=== PATIENT | male | born 1930 | race Caucasian/White ===

== ENCOUNTER 2017-02-06 08:23 | Day surgery (SDC) | payer OTHER, BC ==
[2017-01-30 11:27] VITALS: BMI 29.9
[2017-02-06] MEDS ORDERED: MIDAZOLAM HCL 2 MG/2 ML SINGLE DOSE VIAL ONE (10:48)
[2017-02-06 11:14] LABS: ACTIVATED PTT 30.3 SECONDS (24.0-38.9)
[2017-02-06 11:18] LABS: INR 1.2 (0.82-1.09); PROTHROMBIN TIME (PATIENT) 13.4 SEC (10.2-13.0)
[2017-02-06] MEDS ORDERED: KETOROLAC TROMETHAMINE 30 MG/1 ML VIAL ONE (11:45)
[2017-02-06] MEDS ORDERED: ONDANSETRON 4 MG/2 ML VIAL ONE (11:45)
[2017-02-06] MEDS ORDERED: ceFAZolin SODIUM 1 GM VIAL ONE (11:51)
[2017-02-06] MEDS ORDERED: BUPIVACAINE HCL/PF 0.25% (2.5MG/ML) 10 ML VIAL IJ ONE (12:06)
[2017-02-06] MEDS ORDERED: LACTATED RINGERS SOLUTION 1,000 ML IV SCH (12:30)
[2017-02-06] MEDS ORDERED: ONDANSETRON 4 MG/2 ML VIAL IVPUSH PRN (12:51)
[2017-02-06] MEDS ORDERED: oxyCODONE HCL 5 MG TABLET PO PRN (12:51)
[2017-02-06 13:56] VITALS: TEMP 97.6
[2017-02-06 14:38] VITALS: BP 126/56; PULSE 78
--- NOTE | 2017-02-08 21:06 | OP ---
DATE OF OPERATION: 02/06/2017 Done at [facility]. SURGEON: Carol Ann Meléndez MD TOWNSHIP SUPERVISOR: IVANNA Moore PREOPERATIVE DIAGNOSES: 1. Right knee medial and lateral meniscal tear. 2. Right knee cartilage injury. 3. Right knee synovitis. POSTOPERATIVE DIAGNOSES: 1. Right knee medial lateral meniscal tear. 2. Right knee cartilage injury. 3. Right knee synovitis. PROCEDURE: 1. Right knee arthroscopy, partial meniscectomy, medial [place] [address]. 2. Right knee arthroscopy with chondroplasty and abrasion[place] [address]. 3. Right knee arthroscopy with synovectomy, [place] [address]. FINDINGS: 1. Medial meniscus body and posterior horn tear. 2. Lateral meniscus posterior horn tear. 3. Synovitis, patellofemoral, medial, lateral, and notch area. 4. Central grade 2 to 3 cartilage injury, medial femoral condyle, 6 cm x 4 cm. 5. ACL and PCL intact. 6. Minor, diffuse grade 1-2 cartilage injury, lateral joint line. 7. Central grade 1 to 2 cartilage injury, patella, with grade 4 changes, medial facet of patellofemoral trochlear and the patellofemoral joint. PROCEDURE: Informed consent was obtained. The patient was taken to the operating room where the right lower extremity was prepped and draped in a sterile fashion. A tourniquet was placed on the right upper thigh but not inflated. Using standard arthroscopic technique, a lateral incision and portal were made which allowed for introduction of the camera into the suprapatellar bursa. This was then taken to the medial joint line where under direct visualization, a medial incision and portal were made. Excessive synovium noted in the medial, lateral, patellofemoral and notch area was removed by the up-biting shaver and Bovie cautery. This was found to bring inflammatory tissue into the joint surface, a source of joint pain and dysfunction. Probing of the medial and lateral meniscus found tears described in the findings. These were removed with an up-biting shaver and taken back to a stable rim. Grade 2-3 degenerative changes were treated with chondroplasty, removing all flaking surfaces with low setting Bovie used along the periphery. Grade 4 changes were treated with abrasion-plasty. All areas of the knee were once again re-examined. The knee was then drained. A single suture was placed on all portals. Sterile dressing was placed. The patient was transferred to the recovery room. CAROL ANN MELÉNDEZ M.D. [id number]
== END 2017-02-06 14:40 | disposition home or self-care (01) ==
LOC: FASU 08:23
PROVIDERS: ATTEND Orthopaedic Surgery
PROC: 0SBC4ZZ Excision of Right Knee Joint, Percutaneous Endoscopic Approach (ICD-10-PCS; 2017-02-06)
PROC: 0SBC4ZZ Excision of Right Knee Joint, Percutaneous Endoscopic Approach (ICD-10-PCS; 2017-02-06)
PROC: 0SBC4ZZ Excision of Right Knee Joint, Percutaneous Endoscopic Approach (ICD-10-PCS; principal; 2017-02-06 11:54)
DX: S83.241A Other tear of medial meniscus, current injury, right knee, initial encounter (principal); S83.281A Other tear of lateral meniscus, current injury, right knee, initial encounter; S83.8X1A Sprain of other specified parts of right knee, initial encounter; M63.86 Disorders of muscle in diseases classified elsewhere, lower leg; X58.XXXA Exposure to other specified factors, initial encounter; Y93.9 Activity, unspecified; Y92.9 Unspecified place or not applicable
CPT/HCPCS: 36415; 85610; 85730; 94760

== ENCOUNTER 2018-11-11 05:51 | Inpatient (IN) | payer OTHER, BC ==
[~2018-11-11 05:51] MED LIST: CEFAZOLIN 2 GM/D5W 2 GM/50 ML ML IVPB ONE; CELECOXIB 200 MG CAPSULE PO ONE; GABAPENTIN 300 MG CAPSULE (FP) PO ONE; PANTOPRAZOLE 40 MG TABLET (FP) PO ONE; ROPIVICAINE 0.2%/MORPH PF/KETOROLAC - 51ML DISP.SYRINGE IA ONE; TRANEXAMIC ACID 1000 MG/10 ML VIAL IVPUSH ONE; oxyCODONE HCL 10 MG SUSTAINED ACTING TABLET PO ONE
[2018-11-11] MEDS ORDERED: ceFAZolin SODIUM 1 GM VIAL ONE ×2 (07:06→08:50)
[2018-11-11] MEDS ORDERED: VANCOMYCIN 1,000 MG VIAL (RESTRICTED TO ID ONLY) ONE (07:06)
[2018-11-11] MEDS ORDERED: TRANEXAMIC ACID 1000 MG/10 ML VIAL ONE ×2 (07:06→08:50)
[2018-11-11 07:15] VITALS: BMI 28.1
[2018-11-11] MEDS ORDERED: BUPIVACAINE HCL/PF (5 MG/ML) 30 ML VIAL IJ ONE (07:33)
[2018-11-11] MEDS ORDERED: MIDAZOLAM HCL 2 MG/2 ML SINGLE DOSE VIAL ONE ×3 (07:33→11:38)
[2018-11-11] MEDS ORDERED: DEXAMETHASONE SOD PHOSPHATE/PF 10 MG/ML SDV ONE (07:33)
--- NOTE | 2018-11-11 07:34 | HP ---
Admitting History and Physical - Admission Chief Complaint: right hip osteoarthritis x years History of Present Illness: 88 year old male presents today in regard to his right hip. Longstanding history of right hip osteoarthritis. Patient complains of pain, limited ROM, difficulty ambulating and difficultly completing activities of daily living. Patient has failed conservative treatment measures including PO medications, activity modifications, injections and an exercise program. At this point, patient would like to proceed with surgical intervention, right hip arthroplasty - MAKOplasty. History Source: Patient - Past Medical History Cardiovascular: Yes: HTN Additional Past Medical History: Glaucoma - Past Surgical History Additional Past Surgical History: See written history & physical. - Advance Directives Advance Directives: Yes: Health Care Proxy - Smoking History Smoking history: Former smoker Have you smoked in the past 12 months: No If you are a former smoker, when did you quit?: 1976 - Alcohol/Substance Use Hx Alcohol Use: Yes (2 DRINKS PER DAY) Home Medications - Allergies Allergies/Adverse Reactions: Allergies Allergy/AdvReac Type Severity Reaction Status Date / Time No Known Allergies Allergy Verified 01/30/17 10:57 - Home Medications Home Medications: Ambulatory Orders Bimatoprost [Lumigan] 1 drop OU HS 01/30/17 Chromium [Chromium Picolinate (Nf)] 200 mcg PO DAILY 01/30/17 Cinnamon Bark [Cinnamon] 500 mg PO ACDIN 01/30/17 Lutein 20 mg PO DAILY 01/30/17 Propylene Glycol/Peg 400/Pf [Systane 0.3-0.4% Eye Drops] 1 each OU QID 01/30/17 Warfarin Na [Coumadin -] 7.5 mg PO ASDIR 01/30/17 Warfarin Na [Coumadin -] 10 mg PO ASDIR 01/30/17 Meloxicam [Mobic] 15 mg PO DAILY 11/01/18 Metoprolol Succinate 25 mg PO DAILY 11/01/18 Review of Systems - Review of Systems Musculoskeletal: reports: Decreased ROM (right hip) Physical Examination Vital Signs: Vital Signs Temperature 98.1 F 11/11/18 07:13 Pulse Rate 76 11/11/18 07:13 Respiratory Rate 18 11/11/18 07:13 Blood Pressure 140/80 11/11/18 07:13 O2 Sat by Pulse Oximetry (%) Constitutional: Yes: Well Nourished, No Distress Eyes: Yes: Conjunctiva Clear HENT: Yes: Atraumatic Neck: Yes: Supple Cardiovascular: Yes: Regular Rate and Rhythm Respiratory: Yes: Regular Gastrointestinal: Yes: Soft ...Rectal Exam: Yes: Deferred Musculoskeletal: Yes: Joint Stiffness (right hip) Assessment/Plan 88 year old male presents today in regard to his right hip. Longstanding history of right hip osteoarthritis. Patient complains of pain, limited ROM, difficulty ambulating and difficultly completing activities of daily living. Patient has failed conservative treatment measures including PO medications, activity modifications, injections and an exercise program. At this point, patient would like to proceed with surgical intervention, right hip arthroplasty - MAKOplasty. Pros, cons, risks, benefits and alternatives of a right total hip arthroplasty, MAKOplasty - were discussed with the patient at length. Patient confirms his understanding and consents to proceed with a right total hip arthroplasty, MAKOplasty.
[2018-11-11 07:48] LABS: INR 1.09 (0.83-1.09); PROTHROMBIN TIME (PATIENT) 12.9 SEC (9.7-13.0)
[2018-11-11] MEDS ORDERED: CELECOXIB 200 MG CAPSULE ONE (07:52)
[2018-11-11] MEDS ORDERED: PANTOPRAZOLE 40 MG TABLET (FP) ONE (07:52)
[2018-11-11] MEDS ORDERED: ePHEDrine SULFATE 50 MG/1 ML AMPULE ONE (08:26)
[2018-11-11] MEDS ORDERED: SUCCINYLCHOLINE CHLORIDE 200 MG/10 ML VIAL ONE (08:26)
[2018-11-11] MEDS ORDERED: DEXAMETHASONE SOD PHOSPHATE 4 MG/1 ML VIAL ONE (08:50)
[2018-11-11] MEDS ORDERED: ONDANSETRON 4 MG/2 ML VIAL ONE (08:50)
[2018-11-11] MEDS ORDERED: ROPIVICAINE 0.2%/MORPH PF/KETOROLAC - 51ML DISP.SYRINGE IA ONE ×2 (09:56→10:52)
[2018-11-11] MEDS ORDERED: diazePAM 5 MG TABLET ONE (10:22)
[2018-11-11] MEDS ORDERED: VANCOMYCIN 1,000 MG VIAL (RESTRICTED TO ID ONLY) IVPB ONE (10:51)
[2018-11-11] MEDS ORDERED: TRANEXAMIC ACID 1000 MG/10 ML VIAL IVPUSH ONE (10:51)
--- NOTE | 2018-11-11 11:17 | OP ---
Operative Note - Note: Operative Date: 11/11/18 Pre-Operative Diagnosis: Right hip OA Operation: Right JOSE MIGUEL Post-Operative Diagnosis: Same as Pre-op Surgeon: Sameer Prieto Concrete Buildings Assembler: Nicol Tabares Anesthesia: Spinal Estimated Blood Loss (mls): 200
[2018-11-11] MEDS ORDERED: ACETAMINOPHEN 1000 MG/100 ML VIAL (NON FORMULARY) IVPB ONE ×2 (11:38→12:05)
[2018-11-11] MEDS ORDERED: MAG HYDROX/AL HYDROX/SIMETH 30 ML UNIT-DOSE CUP PO PRN (11:41)
[2018-11-11] MEDS ORDERED: MAGNESIUM HYDROX 2400MG/30ML ORAL SUSPENSION 30 ML CUP PO PRN (11:41)
[2018-11-11] MEDS ORDERED: oxyCODONE HCL 5 MG TABLET PO PRN ×2 (11:41)
[2018-11-11] MEDS ORDERED: ONDANSETRON 4 MG/2 ML VIAL IVPUSH PRN ×2 (11:41)
[2018-11-11] MEDS ORDERED: PROMETHAZINE HCL 25 MG/1 ML VIAL IVPUSH PRN (11:41)
[2018-11-11] MEDS ORDERED: LACTATED RINGERS SOLUTION 1,000 ML IV SCH (11:45)
[2018-11-11] MEDS ORDERED: KETOROLAC TROMETHAMINE 30 MG/1 ML VIAL IVPUSH ONE (11:59)
[2018-11-11] MEDS ORDERED: traMADol HCL 50 MG TABLET PO ONE (12:30)
[2018-11-11] MEDS: traMADol HCL 50 MG TABLET PO SCH (18:32)
[2018-11-11] MEDS: ACETAMINOPHEN 325 MG TABLET (FP) PO SCH (18:32)
[2018-11-11] MEDS: CEFAZOLIN 2 GM/D5W 2 GM/50 ML ML IVPB SCH (18:33)
[2018-11-11] MEDS ORDERED: DEXAMETHASONE SOD PHOSPHATE 10 MG/1 ML VIAL IVPB ONE (20:00)
[2018-11-11] MEDS: ASCORBIC ACID 500 MG TABLET (FP) PO SCH (21:08)
[2018-11-11] MEDS: SENNOSIDES/DOCUSATE COMBO (SENNA PLUS) TABLET (UD) PO SCH (21:09)
[2018-11-11] MEDS: GABAPENTIN 300 MG CAPSULE (FP) PO SCH (21:09)
[2018-11-11] MEDS: WARFARIN NA 2.5 MG TABLET (FP) PO SCH (21:09)
[2018-11-11] MEDS: CELECOXIB 200 MG CAPSULE PO SCH (21:09)
[2018-11-11] MEDS ORDERED: LATANOPROST 0.005% OPHTH SOLN 2.5ML BOTTLE OU SCH (22:00)
[2018-11-11] MEDS: ARTIFICIAL TEARS (POLYVINYL ALCOHOL) OPTH DROPS OU SCH (22:13)
[2018-11-11] MEDS: KETOROLAC TROMETHAMINE 30 MG/1 ML VIAL IVPUSH SCH (23:28)
[2018-11-12] MEDS: CEFAZOLIN 2 GM/D5W 2 GM/50 ML ML IVPB SCH (02:00)
[2018-11-12] MEDS: ACETAMINOPHEN 325 MG TABLET (FP) PO SCH ×4 (05:58→18:13)
[2018-11-12] MEDS: traMADol HCL 50 MG TABLET PO SCH ×4 (05:58→17:40)
[2018-11-12] MEDS: KETOROLAC TROMETHAMINE 30 MG/1 ML VIAL IVPUSH SCH (06:11)
[2018-11-12] MEDS ORDERED: PT OWN MED DRAWER 7, Y5N ONE ×6 (06:47→18:17)
[2018-11-12 07:24] LABS: HEMATOCRIT 35.7 % (35.4-49); HEMOGLOBIN 12.2 GM/dl (11.7-16.9); MCH 32.9 pg (25.7-33.7); MCHC 34.2 g/dl (32.0-35.9); MEAN CELL VOLUME 96.3 fl (80-96); MEAN PLT VOLUME 8.9 fl (7.5-11.1); PLATELET COUNT 200 K/MM3 (134-434); RBC 3.71 M/mm3 (4.00-5.60); RDW 12.5 % (11.9-15.9)
[2018-11-12 07:35] LABS: ANION GAP 5 MMOL/L (8-16); BLOOD UREA NITROGEN 26 mg/dl (7-18); CHLORIDE 108 mmol/L (98-107); CO2 23 mmol/L (21-32); CREATININE 1.2 mg/dl (0.55-1.3); GLUCOSE,RANDOM 152 mg/dl (74-106); POTASSIUM 3.9 mmol/L (3.5-5.1); SODIUM 136 mmol/L (136-145)
[2018-11-12 07:36] LABS: INR 1.25 (0.82-1.09); PROTHROMBIN TIME (PATIENT) 13.9 SEC (10.2-13.0)
[2018-11-12] MEDS ORDERED: PATIENT'S OWN MEDICATION (NON-FORMULARY) (Lutein [Lutein] 20 MG) PO SCH (10:00)
[2018-11-12] MEDS: ARTIFICIAL TEARS (POLYVINYL ALCOHOL) OPTH DROPS OU SCH ×4 (10:09→21:21)
[2018-11-12] MEDS: CELECOXIB 200 MG CAPSULE PO SCH ×2 (10:09→21:21)
[2018-11-12] MEDS: SENNOSIDES/DOCUSATE COMBO (SENNA PLUS) TABLET (UD) PO SCH ×2 (10:10→21:20)
[2018-11-12] MEDS: GABAPENTIN 300 MG CAPSULE (FP) PO SCH ×2 (10:10→21:20)
[2018-11-12] MEDS: MULTIVITAMINS (DAILY MVI) TABLET (FP) PO SCH (10:10)
[2018-11-12] MEDS: metoPROLOL SUCCINATE 25 MG TAB.SR.24H (FP) PO SCH (10:10)
[2018-11-12] MEDS: PANTOPRAZOLE 40 MG TABLET (FP) PO SCH (10:10)
[2018-11-12] MEDS: ASCORBIC ACID 500 MG TABLET (FP) PO SCH ×2 (10:10→21:20)
--- NOTE | 2018-11-12 13:54 | PN ---
Progress Note (short form) - Note Progress Note: 88 yo male POD #1 s/p R JOSE MIGEUL under spinal anesthesia with PNB Patient sitting in chair in PT. Comfortable. No complaints. Tolerating PO. Reports active participation in PT. Daughter in chair next to patient says he's doing really well. A/P: VSS, afebrile Continue current care. Encouraged IS while in room. Continue to participate in PT. No anesthetic complications.
--- NOTE | 2018-11-12 19:29 | PN ---
Progress Note (short form) - Note Progress Note: Pt seen and examined. Doing well. AVSS Selected Entries 11/12/18 11/12/18 14:11 18:00 Temperature 98.4 F 97.8 F Pulse Rate 72 79 Respiratory 18 19 Rate Blood Pressure 127/57 L 119/50 L O2 Sat by Pulse 100 97 Oximetry (%) Oxygen Delivery Room Air Method Laboratory Tests 11/12/18 11/12/18 11/12/18 07:10 07:10 07:10 WBC 14.0 H Hgb 12.2 Hct 35.7 Plt Count 200 PT with INR 13.9 H INR 1.25 H Sodium 136 Potassium 3.9 Chloride 108 H Carbon Dioxide 23 Anion Gap 5 L BUN 26 H Creatinine 1.2 Creat Clearance w eGFR 57.41 Random Glucose 152 H Calcium 8.0 L Gen: NAD RLE: c/d/i, NVID A/P POD#1 s/p R JOSE MIGUEL PT/OOB - WBAT RLE D/C home in AM
--- NOTE | 2018-11-12 19:34 | DS ---
Physical Examination Vital Signs: Vital Signs Temperature 97.8 F 11/12/18 18:00 Pulse Rate 79 11/12/18 18:00 Respiratory Rate 19 11/12/18 18:00 Blood Pressure 119/50 L 11/12/18 18:00 O2 Sat by Pulse Oximetry (%) 97 11/12/18 18:00 Labs: CBC, BMP 11/12/18 07:10 11/12/18 07:10 Discharge Summary Reason For Visit: RIGHT HIP OSTEOARTHRITIS Current Active Problems Osteoarthritis of right hip (Acute) Procedures: Principal: right IVÁN JOSE MIGUEL Hospital Course: Admitted for elective surgery. Procedure performed without complications. Pt received postoperative antibiotic prophylaxis and DVT ppx. Ambulated with physical therapy. Stable for discharge home with outpatient followup. Condition: Stable - Instructions Diet, Activity, Other Instructions: Dr Prieto - Hip Replacement Instructions Keep the Aquacel dressing on until removed by Dr. Prieto in 10-14 days - it is antibacterial and waterproof and you can shower with it on. Call the office for a follow-up appointment with Dr. Prieto in 10-14 days. [phone] Resume your preop Warfarin dosing schedule to prevent blood clots in your legs. Take one Pantoprazole 40mg daily for 6 weeks to protect against heartburn and ulcers. Take Cephalexin (antibiotic) 3x/day for 10 days to help prevent skin infection. Take a multivitamin, stool softener and extra Vitamin C supplement daily. For pain: *Mild pain (1-3/10): Take 1 Tramadol tablet every 4 hours as needed. Moderate/Severe pain (4+/10): Take 1 Tramadol tablet and 1 Hydrocodone tablet every 4 hours as needed. Activity: You can put as much weight on the operative leg as you want. For the first 6 weeks, all you need to do is walk around the house, go up/down stairs, and sit down/get up. After 6 weeks when everything is healed (and bone has grown into the implant) you will be sent for more intensive outpatient physical therapy. Always use a walker or cane for balance and to prevent falls. Expect to see swelling / bruising from the operative site all the way down to your toes. Wear the Compression stocking on the operative side during the day to minimize how much swelling there is in your foot/ankle. Don't wear the stocking at night. You don't have to wear the stocking on the other side. Disposition: VNS/HOME HEALTH CARE - Home Medications Comprehensive Discharge Medication List: Ambulatory Orders Bimatoprost [Lumigan] 1 drop OU HS 01/30/17 Chromium [Chromium Picolinate (Nf)] 200 mcg PO DAILY 01/30/17 Cinnamon Bark [Cinnamon] 500 mg PO ACDIN 01/30/17 Lutein 20 mg PO DAILY 01/30/17 Propylene Glycol/Peg 400/Pf [Systane 0.3-0.4% Eye Drops] 1 each OU QID 01/30/17 Warfarin Na [Coumadin -] 7.5 mg PO ASDIR 01/30/17 Warfarin Na [Coumadin -] 10 mg PO ASDIR 01/30/17 Metoprolol Succinate 25 mg PO DAILY 11/01/18 Ascorbic Acid [Vitamin C -] 500 mg PO BID tablet 11/12/18 Cephalexin Monohydrate [Keflex -] 500 mg PO TID #30 capsule 11/12/18 Hydrocodone/Acetaminophen [Hydrocodone-Acetamin 5-325 mg] 1 each PO Q4H PRN #42 tablet MDD 6 11/12/18 Multivitamins [Multivit ([facility] Formulary)] 1 tab PO DAILY tab 11/12/18 Pantoprazole Sodium [Protonix -] 40 mg PO DAILY #40 tablet.ec 11/12/18 Sennosides/Docusate Sodium [Pericolace -] 2 tablet PO BID tablet 11/12/18 traMADol HCL [Ultram -] 50 mg PO Q4H PRN #42 tablet MDD 6 11/12/18
[2018-11-12] MEDS: WARFARIN NA 2.5 MG TABLET (FP) PO SCH (21:20)
[2018-11-13] MEDS: traMADol HCL 50 MG TABLET PO SCH ×2 (00:55→06:09)
[2018-11-13] MEDS: ACETAMINOPHEN 325 MG TABLET (FP) PO SCH ×2 (00:56→06:10)
[2018-11-13 02:50] VITALS: TEMP 98
[2018-11-13 05:39] VITALS: BP 128/59; PULSE 75
[2018-11-13 08:45] LABS: WHITE BLOOD COUNT 8.4 K/mm3 (4.0-10.8)
[2018-11-13 08:46] LABS: HEMATOCRIT 34.7 % (35.4-49); HEMOGLOBIN 11.4 GM/dl (11.7-16.9); MCH 31.7 pg (25.7-33.7); MEAN CELL VOLUME 96.2 fl (80-96); MEAN PLT VOLUME 9.2 fl (7.5-11.1); PLATELET COUNT 179 K/MM3 (134-434); RBC 3.61 M/mm3 (4.00-5.60); RDW 13.1 % (11.9-15.9)
[2018-11-13 08:57] LABS: INR 1.37 (0.82-1.09); PROTHROMBIN TIME (PATIENT) 15.2 SEC (10.2-13.0)
[2018-11-13 09:01] LABS: ANION GAP 6 MMOL/L (8-16); BLOOD UREA NITROGEN 26 mg/dl (7-18); CALCIUM 7.9 mg/dl (8.5-10); CHLORIDE 107 mmol/L (98-107); CO2 26 mmol/L (21-32); GLUCOSE,RANDOM 89 mg/dl (74-106); POTASSIUM 3.9 mmol/L (3.5-5.1); SODIUM 139 mmol/L (136-145)
[2018-11-13] MEDS: GABAPENTIN 300 MG CAPSULE (FP) PO SCH (09:14)
[2018-11-13] MEDS: SENNOSIDES/DOCUSATE COMBO (SENNA PLUS) TABLET (UD) PO SCH (09:14)
[2018-11-13] MEDS: ASCORBIC ACID 500 MG TABLET (FP) PO SCH (09:14)
[2018-11-13] MEDS: MULTIVITAMINS (DAILY MVI) TABLET (FP) PO SCH (09:14)
[2018-11-13] MEDS: PANTOPRAZOLE 40 MG TABLET (FP) PO SCH (09:14)
[2018-11-13] MEDS: CELECOXIB 200 MG CAPSULE PO SCH (09:14)
[2018-11-13] MEDS: metoPROLOL SUCCINATE 25 MG TAB.SR.24H (FP) PO SCH (09:14)
[2018-11-13] MEDS: ARTIFICIAL TEARS (POLYVINYL ALCOHOL) OPTH DROPS OU SCH (09:16)
[2018-11-13] MEDS ORDERED: PT OWN MED DRAWER 7, Y5N ONE (09:18)
--- NOTE | 2018-11-17 14:48 | PATH ---
Surgical Pathology Report Patient Name: BRITNEY AIKEN Med. Rec. #: [id number] /Age/Gender: 1930 (Age: 88) / M Account: [id number] Location: [facility] Taken: 11/11/2018 Received: 11/11/2018 Reported: 11/17/2018 Physicians: Sameer Prieto M.D. Specimen(s) Received RIGHT FEMORAL HEAD Clinical History Right hip osteoarthritis Final Diagnosis FEMORAL HEAD, RIGHT, TOTAL HIP REPLACEMENT: DEGENERATIVE JOINT DISEASE. Electronically Signed Suzie Silva M.D. Gross Description Received in formalin, labeled "right femoral head," is a 6.0 x 6.0 x 4.5 cm. femoral head with a 1.4 cm in length portion of femoral neck attached. The margin of resection is smooth. There is a 6.5 cm greatest dimension area of eburnation present. The remaining articular surface is jordan-yellow and diffusely nodular and granular. The underlying trabecular bone is yellow and hard. A contracts representative section is submitted in one cassette, following decalcification. 11/13/2018 [facility]/13/2018
--- NOTE | 2018-11-25 11:12 | SPEC ---
DATE OF OPERATION: 11/11/2018 PREOPERATIVE DIAGNOSIS: Right hip osteoarthritis. POSTOPERATIVE DIAGNOSIS: Right hip osteoarthritis. PROCEDURE: Right total hip replacement with MAKOplasty robotic navigation. SURGEON: Diane Tan MD FOOD AND DRUG INSPECTOR: IVANNA Magaña. ANESTHESIA: Spinal plus sedation. ESTIMATED BLOOD LOSS: 200 mL. COMPLICATIONS: None. DISPOSITION: The patient was transferred to the PACU in stable condition. IMPLANTS USED: [place] Accolade 2 size 9 femoral component, David Tritanium 62-mm acetabular component with 25- and 20-mm acetabular screws, MDM bipolar head ball with inner +8 mm offset head. INDICATIONS: This is an 88-year-old male who presented to the office complaining of severe right hip pain. He was seen and examined by Dr. Tan and diagnosed with severe right hip osteoarthritis. The patient was initially treated non-operatively with conservative management, but continued to have severe pain and ambulatory dysfunction. He was therefore indicated for a right total hip replacement. The risks, benefits, and alternatives to the procedure were explained to the patient and his family, and they elected to proceed with the procedure. DESCRIPTION OF PROCEDURE: On the day of surgery, the patient was taken to the operating room and placed on the OR table. Spinal anesthesia was administered by the anesthesiologist. The patient was then positioned in the lateral decubitus position on the table and all bony prominences were padded. An axillary roll was placed. The operative hip was then prepped and draped in the usual sterile fashion and intravenous antibiotics were given for infection prophylaxis. A surgical time-out was then performed with the team, and the patients identity, procedure, side, availability of implants, and the administration of antibiotics were confirmed. An approximately 15-cm longitudinal incision was made through the skin centered on the greater trochanter of the hip. This dissection was carried down through the subcutaneous tissues to the deep fascia. This fascia was then incised and a Cobra was placed around the inferior femoral neck. Electrocautery was used to reflect the anterior 40% of the gluteus medius and minimus starting at the musculotendinous junction and leaving a cuff for closure. This was reflected to reveal the capsule of the hip joint. An anterior capsulectomy was performed and the femoral head and neck were visualized. Grade 4 changes were noted diffusely throughout the joint. At this point, three small stab incisions were made superior to the main incision along the iliac crest. Three self-drilling Steinmann pins were then placed and the Convergin pelvic array was attached. Reference points on the limb were then entered into the robotic device and the limb length deficiency, offset, and femoral neck resection level were then calculated by the software. The hip was then dislocated with traction and external rotation. An oscillating saw was used to make the femoral neck cut at the level previously templated, and the femoral head was removed. Attention was then turned to the acetabulum. Retractors were then placed around the acetabulum and the labrum was removed. An acetabular checkpoint pin and the Convergin software were used to register the contours of the acetabulum. The acetabulum was then reamed in a single stage to the preoperatively templated size using the Convergin robotic arm. The appropriately sized cup was then impacted and had solid fixation as well as the preset inclination and version of 40 and 20 degrees, respectively. A polyethylene liner was then placed in the cup. Attention was then turned back to the femur, which was externally rotated for improved visualization. A femoral neck elevator was used to present the femoral neck cut, a box osteotome was used to enter the femoral canal, and a canal finder was used to go down the femoral shaft. The Moises broaches were used sequentially until the optimal scratch fit was achieved. This correlated with the preoperatively templated size. From here, several different offset head and neck configurations were tested until excellent stability and length were obtained. These measurements were quantified using the Convergin software. All trial components were then removed, the femur was copiously irrigated, and the final components were placed. Leg length and stability were checked again and found to be excellent. Irrigation was performed again. Wound closure was started by repairing the abductor muscles with a no. 2 FiberWire stitch in a Krackow configuration passed through bone tunnels in the greater trochanter and tied over a bony bridge. This repair was then reinforced with a 0 V-Loc 180 barbed suture. Next, no. 1 Polysorb and 0 V-Loc 180 were used to close the fascia. The deep subcutaneous tissue was closed with no. 1 Polysorb sutures, and 2-0 Polysorb was used for the superficial subcutaneous tissue. The skin was closed using both 3-0 V-Loc 90 suture in a running subcuticular fashion and SwiftSet skin adhesive. The Moises array and pins were removed from the iliac crest and the stab incision sites were irrigated and closed with 4-0 Polysorb sutures and SwiftSet skin adhesive. Once this was completed, a sterile dressing was applied. The patient was then awakened and taken to the PACU in stable condition. DIANE TAN M.D. MART/[id number]
== END 2018-11-13 09:50 | disposition home health service (06) | DRG 470 ==
LOC: FASU 05:51 → FM/S 06:23 → EDSTATUS 08:00 → FM/S 13:10
PROVIDERS: ADMIT Student in an Organized Health Care Education/Training Program; ATTEND Student in an Organized Health Care Education/Training Program
PROC: 8E0W0CZ Robotic Assisted Procedure of Trunk Region, Open Approach (ICD-10-PCS; 2018-11-11)
PROC: 0SR90JA Replacement of Right Hip Joint with Synthetic Substitute, Uncemented, Open Approach (ICD-10-PCS; principal; 2018-11-11 08:00)
DX: M16.11 Unilateral primary osteoarthritis, right hip (principal); I10 Essential (primary) hypertension
CPT/HCPCS: 36415; 73502-TC-RT-FY; 80048; 85027; 85610; 88305-TC; 88311-TC; 94760; 97116-GP; 97163-GP; J0131; J1100